=== PATIENT | male | born 1950 | race Caucasian/White ===

== ENCOUNTER → 2017-05-14 | Outpatient (CLI) | payer OTHER, BC | LOC: M SLEEP 20:00 | DX: G47.30 Sleep apnea, unspecified (principal) | CPT/HCPCS: 95810 ==

== ENCOUNTER → 2017-06-04 | Outpatient (CLI) | payer OTHER | LOC: M SLEEP 20:00 | DX: G47.33 Obstructive sleep apnea (adult) (pediatric) (principal) ==

== ENCOUNTER → 2019-04-12 | Outpatient (CLI) | payer OTHER ==
[~2019-04-12] MED LIST: ASPI-161 PO; CRES10TA PO; GLUC500T PO; LISI-542 PO; PRIL20TA2 PO
--- NOTE | 2019-04-16 06:40 | ECHO ---
DATE OF PROCEDURE: 04/12/2019 DATE OF : 1950 AGE: 68 GENDER: Male HEIGHT: 70 inches WEIGHT: 235 pounds BODY SURFACE AREA: 2.24 m2 OUTPATIENT REFERRING PHYSICIAN: Dr. Magdi Christopher INDICATION: [employer] physical/prosthetic aortic valve. MEASUREMENTS 2-D Measurements: RV: 4.4 cm LV: 4.8 cm Septum 1.2 cm Posterior wall: 1.2 cm Aortic root: 4.0 cm LA: 4.3 cm LVEF: 70% Doppler Measurements: AV: 2.34 m/s LVOT: 1.1 m/s LVOT diameter: 1.8 cm Mean AV systolic gradient: 13 mmHg Dimensionless index: 0.53 MV - E 91 A 122 EA ratio 0.7 Early mitral deceleration time: 327 ms E prime medial: 5.7 A prime medial: 8.9 E prime lateral: 8.5 Average E/E prime ratio: 12.8/PCWP 17.8 mmHg PV: 0.9 m/s Pulmonary artery acceleration time: 99 ms PASP: 37 mmHg IVC: 1.6 cm COMMENTS: Normal sinus rhythm without intraventricular conduction disturbance. M-mode and two-dimensional echocardiography was performed with pulsed, continuous wave, color flow and tissue Doppler studies. Mild concentric left ventricle hypertrophy with hyperkinetic wall motion. Mildly dilated left atrium with grade 1 LV diastolic dysfunction and mildly elevated estimated mean left atrial pressure. Mildly dilated right heart chambers with normal wall motion and Doppler evidence of mild pulmonary hypertension. Normal IVC size and collapse against an elevated central venous pressure or right heart failure. Appropriate function of a bioprosthetic aortic valve. Mildly dilated aortic root and ascending aorta. Slightly thickened mitral annulus, but normal leaflet thickness and excursion with no posterior systolic buckling. No functional valvular abnormality. Normal appearing and functioning tricuspid valve. No apparent intracardiac mass or pericardial effusion.
== END ==
LOC: M CARPUL 09:41
PROVIDERS: ATTEND Internal Medicine Cardiovascular Disease
DX: Z02.89 Encounter for other administrative examinations (principal)

== ENCOUNTER → 2020-08-11 | Outpatient (CLI) | payer OTHER ==
[~2020-08-11] MED LIST changes: -LISI-542 PO; +LISI-898 PO
--- NOTE | 2020-08-11 19:35 | ECGEPIP ---
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
--- NOTE | 2020-08-12 09:33 | ECHO ---
DATE OF PROCEDURE: 08/11/2020 Age: 70 Gender: Male Height: 177 cm Weight: 108 kg REFERRING PHYSICIAN: Angeline Macedo PA-C. INDICATION: Aortic stenosis. MEASUREMENTS: IVS 1.1 cm LV 5.1 cm LVPW 1.2 cm LA 3.7 cm Aorta 3.5 cm Mitral E wave velocity 86 cm/s Mitral A wave 115 cm/s E prime septal 6.5 cm/s E prime lateral 7.3 cm/s Left atrial volume index 30 mL/m2 FINDINGS: This study is of fair technical quality with somewhat limited visualization. There is underlying sinus rhythm. Left ventricle has normal size and hyperdynamic contractility, I estimate LVEF approximately 70%. Right ventricle is of normal function. Both atria appear at least mildly enlarged. There is a bioprosthetic valve in the aortic position. It was not well seen and I cannot comment much on its structure. Mitral and tricuspid valves appear normal. Pulmonic valve was not visualized. No pericardial effusion is noted. Inferior vena cava was not seen. Aortic root and aortic arch appear normal. Abdominal aorta was not seen. Doppler interrogation of the aortic valve reveals no insufficiency. Peak gradient across the valve was 27 and mean gradient was 14, which corresponds to mildly increased values. There is no significant mitral valvular disease. There is tract tricuspid insufficiency. I was not able to calculate pulmonary artery pressure due to poor quality of TR jet. Mitral inflow pattern and tissue Doppler imaging of the mitral annulus revealed grade 1 diastolic dysfunction. CONCLUSIONS: 1. Study is of fair technical quality, underlying sinus rhythm. 2. Normal LV size with borderline LVH, hyperdynamic LV systolic function, and grade 1 diastolic dysfunction. 3. Poorly visualized bioprosthesis in the aortic position with no insufficiency and mildly increased gradient (mean gradient is 14 mmHg). 4. No significant mitral and tricuspid valvular disease. 5. Unable to estimate central venous pressure and pulmonary artery pressure. [facility]
== END ==
LOC: M CARPUL 15:09
PROVIDERS: ATTEND Physician Assistant Medical
DX: I35.0 Nonrheumatic aortic (valve) stenosis (principal)

== ENCOUNTER → 2023-09-14 | Outpatient (REF) | payer OTHER, MEDICARE ==
[~2023-09-14] MED LIST changes: -ASPI-161 PO; +ASPI-615 PO; -LISI-898 PO; +LISI5TAB11 PO
== END ==
LOC: M SFHCDERM 17:17
PROVIDERS: ATTEND Dermatology
DX: B35.1 Tinea unguium (principal)

== ENCOUNTER → 2023-09-22 | Outpatient (REF) | payer OTHER, MEDICARE | LOC: M SFHCDERM 17:34 | PROVIDERS: ATTEND Dermatology | DX: Z48.02 Encounter for removal of sutures (principal) ==

== ENCOUNTER → 2023-10-05 | Outpatient (REF) | payer MEDICARE, OTHER | LOC: M SFHCDERM 17:31 | PROVIDERS: ATTEND Dermatology | DX: T86.821 Skin graft (allograft) (autograft) failure (principal) ==